=== PATIENT | female | born 1975 | race Caucasian/White ===

== ENCOUNTER 2016-07-29 16:51 | Emergency (ER) | payer OTHER ==
[2016-07-29 17:48] LABS: HEMOGLOBIN 14.4 gm/dl (12.3-15.3); RED BLOOD COUNT 4.79 M/UL (4.00-5.10); WHITE BLOOD COUNT 13.5 K/UL (4.5-11.0)
[2016-07-29 18:03] LABS: BUN/CREATININE RATIO 13 (0-10)
== END 2016-07-29 21:29 | disposition home or self-care (01) ==
LOC: ER1 16:51
PROVIDERS: Physician Assistant
DX: E86.0 Dehydration (principal); R79.89 Other specified abnormal findings of blood chemistry; E11.9 Type 2 diabetes mellitus without complications; I10 Essential (primary) hypertension; Z88.2 Allergy status to sulfonamides; Z88.8 Allergy status to other drugs, medicaments and biological substances; Z88.6 Allergy status to analgesic agent; Z79.899 Other long term (current) drug therapy
CPT/HCPCS: 36415; 80053; 81001; 82150; 83605; 83690; 84484; 84703; 85025; 93005; 96361; 96372; 96374; 96375; 99284; J0500; J2270; J2405; J2765; J7030; J7050; Q9962

== ENCOUNTER 2021-03-17 14:58 | Emergency (ER) | payer OTHER ==
[~2021-03-17 14:58] MED LIST: PHENERGAN25 MG PR; ZOFRAN4 MG PO
== END 2021-03-17 18:16 | disposition left against medical advice (07) ==
LOC: ER1 14:58
DX: Z53.21 Procedure and treatment not carried out due to patient leaving prior to being seen by health care provider (principal)